=== PATIENT | male | born 1990 | race Two or more races ===

== ENCOUNTER 2018-05-01 18:19 | Inpatient (IN) | payer OTHER ==
[2018-05-01 18:21] VITALS: BMI 26.6
--- NOTE | 2018-05-01 21:50 | HP ---
COWS - Scale Resting Pulse: 1= NE 81-100 Sweatin= Chills/Flushing Restless Observation: 1= Difficult to Sit Still Pupil Size: 0= Normal to Room Light Bone or Joint Aches: 0= None Runny Nose/ Eye Tearin= Runny Nose/Eyes GI Upset > 30mins: 0= None Tremor Observation: 1= Tremor [place], Not Seen Yawning Observation: 4= Several Times/Minute Anxiety or Irritability: 2=Irritable/Anxious Goose Flesh Skin: 0=Smooth Skin COWS Score: 12 Admission [facility] - HPI Chief Complaint: ' I want to get clean" opioid withdrawal symptom Allergies/Adverse Reactions: Allergies Allergy/AdvReac Type Severity Reaction Status Date / Time No Known Allergies Allergy Verified 12/08/15 11:38 History of Present Illness: 27 yo male with with hx of nicotine, heroin (IV), cocaine (IV) dependence is here seeking detox. Utox positive for Fen, THC, LUCIE, met, amp, MOP, oxy, denies use of any other substance aside from lucie and heroin. Denies suicidal / homicidal ideation or hx of suicide attempt. Last detox [facility] over three weeks. Denies hx of seizures or blackouts. Denies any legal troubles at this time. Longest period of sobriety six month months and relapse January 2018. Exam Limitations: No Limitations - Ebola screening Have you traveled outside of the country in the last 21 days: No (N) Have you had contact with anyone from an Ebola affected area: No Have you been sick,other than usual withdrawal symptoms: No Do you have a fever: No - Review of Systems Constitutional: Loss of Appetite, Changes in sleep, Unintentional Wgt. Loss (10 lbs), Other (fatigue) EENT: reports: Nose Congestion Respiratory: reports: No Symptoms reported Cardiac: reports: No Symptoms Reported GI: reports: Poor Appetite, Poor Fluid Intake : reports: No Symptoms Reported Musculoskeletal: reports: Back Pain, Joint Pain Integumentary: reports: Pruritus Neuro: reports: No Symptoms reported Endocrine: reports: Increased Thirst Hematology: reports: No Symptoms Reported Psychiatric: reports: Orientated x3, Anxious Other Systems: Reviewed and Negative Patient History - Patient Medical History Hx Anemia: No Hx Asthma: No Hx Chronic Obstructive Pulmonary Disease (COPD): No Hx Cancer: No Hx Cardiac Disorders: No Hx Congestive Heart Failure: No Hx Hypertension: No Hx Hypercholesterolemia: No Hx Pacemaker: No HX Cerebrovascular Accident: No Hx Seizures: Yes (drug related once-last episode was in 08/2015) Hx Dementia: No Hx Diabetes: No Hx Gastrointestinal Disorders: No Hx Genitourinary Disorders: No Hx Sexually Transmitted Disorders: No Hx Renal Disease (ESRD): No Hx Thyroid Disease: No Hx Human Immunodeficiency Virus (HIV): No (NEGATIVE HX) Hx Hepatitis C: No Hx Depression: Yes (AND ANXIETY/PANIC ATTACK-ON MEDS) Hx Suicide Attempt: No Hx Bipolar Disorder: Yes Hx Schizophrenia: No - Patient Surgical History Past Surgical History: Yes Hx Neurologic Surgery: No Hx Cataract Extraction: No Hx Cardiac Surgery: No Hx Lung Surgery: No Hx Breast Surgery: No Hx Breast Biopsy: No Hx Abdominal Surgery: No Hx Appendectomy: No Hx Cholecystectomy: No Hx Genitourinary Surgery: No Hx Section: No Hx Orthopedic Surgery: No Other Surgical History: bilateral inguinal hernia repair Anesthesia Reaction: No - PPD History Previous Implant?: No Documented Results: Negative w/o proof Date: 12/10/15 Results: TBD PPD to be Administered?: Yes - Smoking Cessation Smoking history: Current every day smoker Have you smoked in the past 12 months: Yes Aproximately how many cigarettes per day: 10 Hx Chewing Tobacco Use: No Initiated information on smoking cessation: Yes 'Breaking Loose' booklet given: 05/01/18 - Substance & Tx. History Hx Alcohol Use: No Hx Substance Use: Yes Substance Use Type: Cocaine, Heroin Hx Substance Use Treatment: Yes ([facility] over three weeks ago ) - Substances Abused Heroin Route: Injection Frequency: Daily Amount used: one bundle Age of first use: 21 Date of Last Use: 05/01/18 Cocaine Route: Injection Frequency: Daily Amount used: 1 gram Age of first use: 21 Date of Last Use: 05/01/18 Family Disease History - Family Disease History Family History: Denies Admission Physical Exam BHS - Vital Signs Vital Signs: Vital Signs - 24 hr 05/01/18 18:20 Temperature 97.1 F L Pulse Rate 97 H Respiratory 18 Rate Blood Pressure 130/92 - Physical General Appearance: Yes: Appropriately Dressed, Mild Distress, Irritable, Anxious HEENTM: Yes: EOMI, Hearing grossly Normal, Normal ENT Inspection, Normocephalic , Normal Voice, TIFFANIE, Pharynx Normal, Tm's normal, Rhinorrhea, Other (dry muscous membranes, cheilithis) Respiratory: Yes: Chest Non-Tender, Lungs Clear, Normal Breath Sounds, No Respiratory Distress, No Accessory Muscle Use Neck: Yes: Within Normal Limits Breast: Yes: Breast Exam Deferred Cardiology: Yes: Regular Rhythm, Regular Rate Abdominal: Yes: Normal Bowel Sounds, Non Tender, Flat, Soft Genitourinary: Yes: Within Normal Limits Back: Yes: Normal Inspection Musculoskeletal: Yes: full range of Motion, Gait Steady, Pelvis Stable, Back pain Extremities: Yes: Normal Capillary Refill, Normal Inspection, Normal Range of Motion, Non-Tender Neurological: Yes: osteologist II-XII NML intact, Fully Oriented, Alert, Motor Strength 5/5, Normal Response, Depressed Affect Integumentary: Yes: Normal Color, Warm, Diaphoresis Lymphatic: Yes: Within Normal Limits - Diagnostic (1) Cocaine dependence Current Visit: Yes Status: Acute Qualifiers: Substance use status: uncomplicated Qualified Code(s): F14.20 - Cocaine dependence, uncomplicated (2) Nicotine dependence Current Visit: Yes Status: Acute Qualifiers: Nicotine product type: cigarettes Substance use status: uncomplicated Qualified Code(s): F17.210 - Nicotine dependence, cigarettes, uncomplicated (3) Opioid dependence with withdrawal Current Visit: Yes Status: Acute (4) IVDU (intravenous drug user) Current Visit: Yes Status: Acute Cleared for Admission [facility] - Detox or Rehab [facility] Level of Care: Medically Managed Detox Regimen/Protocol: Methadone [facility] Breath Alcohol Content Breath Alcohol Content: 0 Urine Drug Screen - Results Drug Screen Negative: No Urine Drug Screen Results: THC-Marijuana, LUCIE-Cocaine, OPI-Opiates, AMP- Amphetamines, MET-Methamphetamine, OXY-Oxycodone, FEN-Fentanyl
[2018-05-01] MEDS ORDERED: diazePAM 5 MG TABLET PO PRN (21:54)
[2018-05-01] MEDS ORDERED: IBUPROFEN 400 MG TABLET (FP) PO PRN (21:54)
[2018-05-01] MEDS ORDERED: MAG HYDROX/AL HYDROX/SIMETH 30 ML UNIT-DOSE CUP PO PRN (21:54)
[2018-05-01] MEDS ORDERED: MAGNESIUM HYDROX 2400MG/30ML ORAL SUSPENSION 30 ML CUP PO PRN (21:54)
[2018-05-01] MEDS ORDERED: NICOTINE POLACRILEX 2 MG GUM BC PRN (21:54)
[2018-05-01] MEDS ORDERED: P-EPHED 60MG/TRIPROLIDI 2.5MG TABLET PO PRN (21:54)
[2018-05-01] MEDS ORDERED: guaiFENesin/D-METHORPHAN HB 10 ML UNIT-DOSE CUPS PO PRN (21:54)
[2018-05-01] MEDS ORDERED: LOPERAMIDE HCL 2 MG CAPSULE PO PRN (21:54)
[2018-05-01] MEDS ORDERED: MAGNESIUM CITRATE 300 ML BOTTLE PO PRN (21:54)
[2018-05-01] MEDS ORDERED: ACETAMINOPHEN 325 MG TABLET (FP) PO PRN (21:54)
[2018-05-01] MEDS ORDERED: MENTHOL/PHENOL 1 EACH UD MM PRN (21:54)
[2018-05-01] MEDS ORDERED: METHADONE HCL 10 MG TABLET (FOR DETOX USE ONLY) PO ONE ×2 (21:54→23:00)
[2018-05-01] MEDS ORDERED: MELATONIN 5 MG TABLETS PO PRN (22:00)
[2018-05-01] MEDS: THIAMINE HCL 100 MG TABLET (FP) PO SCH (23:55)
[2018-05-02] MEDS ORDERED: METHADONE HCL 10 MG TABLET (FOR DETOX USE ONLY) PO ONE (10:00)
--- NOTE | 2018-05-02 10:19 | PN ---
BHS COWS - Scale Resting Pulse: 0= [place] 80 or Below Sweatin= Beads of Sweat on Face Restless Observation: 0= Sits Still Pupil Size: 0= Normal to Room Light Bone or Joint Aches: 0= None Runny Nose/ Eye Tearin= None GI Upset > 30mins: 0= None Tremor Observation of Outstretched Hands: 0= None Yawning Observation: 1= 1-2x During Session Anxiety or Irritability: 2=Irritable/Anxious Goose Flesh Skin: 0=Smooth Skin COWS Score: 6 BHS Progress Note (SOAP) Subjective: PATIENT SWEATY, IRRITABLE, SLEEPY AND NOT COMMUNICATING WITH PROVIDER. Objective: 05/02/18 10:18 Vital Signs Temperature 98.6 F 05/02/18 09:29 Pulse Rate 71 05/02/18 09:29 Respiratory Rate 20 05/02/18 09:29 Blood Pressure 122/74 05/02/18 09:29 O2 Sat by Pulse Oximetry (%) PE: SKIN WARM AND BEADS OF SWEAT NOTED OF FOREHEAD ANXIOUS/IRRITABLE EXT FULL ROM, NO EDEMA AMB AD SARAH Assessment: 05/02/18 10:19 WITHDRAWAL SX Plan: CONTINUE DETOX [facility] ORAL FLUIDS CONTINUE TO MONITOR CLINICALLY
[2018-05-02 10:50] LABS: HEMOGLOBIN 13.4 GM/dL (11.7-16.9); RBC 4.48 M/mm3 (4.00-5.60); WHITE BLOOD COUNT 3.9 K/mm3 (4.0-10.0)
[2018-05-02 10:53] LABS: MCH 29.9 pg (25.7-33.7); MCHC 32.6 g/dl (32.0-35.9); MEAN CELL VOLUME 91.6 fl (80-96); PLATELET COUNT 215 K/MM3 (134-434); RDW 14.2 % (11.9-15.9)
[2018-05-02 10:58] LABS: ALBUMIN 3.5 g/dl (3.4-5.0); ALK PHOS 99 U/L (45-117); ANION GAP 10 MMOL/L (8-16); BILIRUBIN,TOTAL 0.3 mg/dL (0.2-1); BLOOD UREA NITROGEN 18 mg/dL (7-18); CALCIUM 8.4 mg/dL (8.5-10.1); CHLORIDE 106 mmol/L (98-107); CO2 24 mmol/L (21-32); CREATININE 0.9 mg/dL (0.55-1.3); GLUCOSE,RANDOM 82 mg/dL (74-106); POTASSIUM 3.9 mmol/L (3.5-5.1); SGOT/AST 14 U/L (15-37); SGPT/ALT 16 U/L (13-61); SODIUM 139 mmol/L (136-145)
--- NOTE | 2018-05-02 11:36 | EKG ---
Test Reason : Blood Pressure : / mmHG Vent. Rate : 088 BPM Atrial Rate : 088 BPM P-R Int : 162 ms QRS Dur : 080 ms QT Int : 342 ms P-R-T Axes : 073 085 054 degrees QTc Int : 413 ms NORMAL SINUS RHYTHM NORMAL ECG NO PREVIOUS ECGS AVAILABLE Confirmed by JOSE L TURNER MD ([id number]) on 05/02/2018 11:35:56 AM Referred By: Confirmed By:JOSE L TURNER MD
[2018-05-02] MEDS: PRENATAL VITAMINS W/ FOLIC ACID TABLET (FP) PO SCH (11:56)
[2018-05-02] MEDS: NICOTINE 14 MG/24 HOURS TOPICAL PATCH TD SCH (11:58)
--- NOTE | 2018-05-02 14:08 | CONSULT ---
[facility] Psychiatric Consult - Data Date of interview: 05/02/18 Admission source: [facility] Identifying data: Patient is approached at bedside for the psychiatric interview. Mr Alvarez declines. " I don't have psychiatric problems ". Nursing staff is made aware.
[2018-05-02] MEDS: THIAMINE HCL 100 MG TABLET (FP) PO SCH (22:34)
[2018-05-03] MEDS ORDERED: METHADONE HCL 5 MG TABLET (FOR DETOX USE ONLY) PO ONE (10:00)
[2018-05-03] MEDS: PRENATAL VITAMINS W/ FOLIC ACID TABLET (FP) PO SCH (10:31)
[2018-05-03] MEDS: NICOTINE 14 MG/24 HOURS TOPICAL PATCH TD SCH (10:31)
--- NOTE | 2018-05-03 12:09 | PN ---
[facility]HS COWS - Scale Resting Pulse: 1= [place] 81-100 Sweatin= Chills/Flushing Restless Observation: 1= Difficult to Sit Still Pupil Size: 0= Normal to Room Light Bone or Joint Aches: 1= Mild Discomfort Runny Nose/ Eye Tearin= Runny Nose/Eyes GI Upset > 30mins: 0= None Tremor Observation of Outstretched Hands: 1= Tremor [place], Not Seen Yawning Observation: 2= >3x During Session Anxiety or Irritability: 2=Irritable/Anxious Goose Flesh Skin: 0=Smooth Skin COWS Score: 11 BHS Progress Note (SOAP) Subjective: c/o of fatigue, irritable, body Objective: 05/03/18 12:08 Vital Signs Temperature 98.6 F 05/03/18 09:13 Pulse Rate 82 05/03/18 09:13 Respiratory Rate 18 05/03/18 09:13 Blood Pressure 116/74 05/03/18 09:13 O2 Sat by Pulse Oximetry (%) Laboratory Last Values WBC 3.9 K/mm3 (4.0-10.0) L 05/02/18 07:30 RBC 4.48 M/mm3 (4.00-5.60) 05/02/18 07:30 Hgb 13.4 GM/dL (11.7-16.9) 05/02/18 07:30 Hct 41.0 % (35.4-49) 05/02/18 07:30 MCV 91.6 fl (80-96) 05/02/18 07:30 MCH 29.9 pg (25.7-33.7) 05/02/18 07:30 MCHC 32.6 g/dl (32.0-35.9) 05/02/18 07:30 RDW 14.2 % (11.9-15.9) 05/02/18 07:30 Plt Count 215 K/MM3 (134-434) D 05/02/18 07:30 MPV 10.0 fl (7.5-11.1) 05/02/18 07:30 Sodium 139 mmol/L (136-145) 05/02/18 07:30 Potassium 3.9 mmol/L (3.5-5.1) 05/02/18 07:30 Chloride 106 mmol/L (98-107) 05/02/18 07:30 Carbon Dioxide 24 mmol/L (21-32) 05/02/18 07:30 Anion Gap 10 MMOL/L (8-16) 05/02/18 07:30 BUN 18 mg/dL (7-18) 05/02/18 07:30 Creatinine 0.9 mg/dL (0.55-1.3) 11 07:30 Creat Clearance w eGFR > 60 (>60) 05/02/18 07:30 Random Glucose 82 mg/dL (74-106) 05/02/18 07:30 Calcium 8.4 mg/dL (8.5-10.1) L 05/02/18 07:30 Total Bilirubin 0.3 mg/dL (0.2-1) 05/02/18 07:30 AST 14 U/L (15-37) L 05/02/18 07:30 ALT 16 U/L (13-61) 05/02/18 07:30 Alkaline Phosphatase 99 U/L (45-117) 05/02/18 07:30 Total Protein 7.0 g/dl (6.4-8.2) 05/02/18 07:30 Albumin 3.5 g/dl (3.4-5.0) 05/02/18 07:30 RPR Titer Nonreactive (NONREACTIVE) 05/02/18 07:30 Assessment: 05/03/18 12:11 withdrawal sx Plan: increase PO fluids continue to monitor continue detox
[2018-05-03] MEDS: THIAMINE HCL 100 MG TABLET (FP) PO SCH (22:38)
[2018-05-04 06:08] VITALS: BP 100/63; PULSE 76; TEMP 98.9
[2018-05-04] MEDS ORDERED: METHADONE HCL 5 MG TABLET (FOR DETOX USE ONLY) PO ONE (10:00)
--- NOTE | 2018-05-04 12:19 | DS ---
[facility] Detox Discharge Summary Admission Date: 05/01/18 Discharge Date: 05/04/18 - History Present History: Cocaine Dependence, Opioid Dependence Additional Comments: Patient decided to leave AMA despite encouragement from staff to complete detox. Patient instructed to call 911 right away if experiencing withdrawal symptoms and to see his PCP within 3 days. Pertinent Past History: Seizure disorder r/t illicit drugs Cocaine dependence Opioid dependence Nicotine dependence - Physical Exam Results Vital Signs: Vital Signs Temperature 98.9 F 05/04/18 06:07 Pulse Rate 76 05/04/18 06:07 Respiratory Rate 18 05/04/18 06:07 Blood Pressure 100/63 05/04/18 06:07 O2 Sat by Pulse Oximetry (%) Pertinent Admission Physical Exam Findings: Withdrawal symptoms Laboratory Tests 05/02/18 05/02/18 05/02/18 07:30 07:30 07:30 WBC 3.9 L RBC 4.48 Hgb 13.4 Hct 41.0 MCV 91.6 MCH 29.9 MCHC 32.6 RDW 14.2 Plt Count 215 D MPV 10.0 Sodium 139 Potassium 3.9 Chloride 106 Carbon Dioxide 24 Anion Gap 10 BUN 18 Creatinine 0.9 Creat Clearance w eGFR > 60 Random Glucose 82 Calcium 8.4 L Total Bilirubin 0.3 AST 14 L ALT 16 Alkaline Phosphatase 99 Total Protein 7.0 Albumin 3.5 RPR Titer Nonreactive Labs reviewed - Medication Discharge Medications: Ambulatory Orders NK [No Known Home Medication] 05/01/18 - Diagnosis (1) Depression Status: Chronic (2) Anxiety Status: Chronic (3) Nicotine dependence Status: Chronic Qualifiers: Nicotine product type: cigarettes Substance use status: uncomplicated Qualified Code(s): F17.210 - Nicotine dependence, cigarettes, uncomplicated (4) Opioid dependence with withdrawal Status: Acute (5) Cocaine dependence Status: Chronic Qualifiers: Substance use status: uncomplicated Qualified Code(s): F14.20 - Cocaine dependence, uncomplicated (6) Bipolar disorder Status: Chronic (7) History of seizure Status: Chronic - AMA Did Patient Leave Against Medical Advice: Yes (Call 911 if withdrawal symptoms or feeling sick)
[2018-05-05] MEDS ORDERED: METHADONE HCL 10 MG TABLET (FOR DETOX USE ONLY) PO ONE (10:00)
[2018-05-06] MEDS ORDERED: METHADONE HCL 5 MG TABLET (FOR DETOX USE ONLY) PO ONE (06:00)
== END 2018-05-04 09:06 | disposition left against medical advice (07) | DRG 770 ==
LOC: YASAS 18:19 → Y3N 22:33
PROC: HZ2ZZZZ Detoxification Services for Substance Abuse Treatment (ICD-10-PCS; principal; 2018-05-01)
DX: F11.23 Opioid dependence with withdrawal (principal); F14.20 Cocaine dependence, uncomplicated; F17.213 Nicotine dependence, cigarettes, with withdrawal; F31.9 Bipolar disorder, unspecified; F41.8 Other specified anxiety disorders; F41.0 Panic disorder [episodic paroxysmal anxiety]; F32.9 Major depressive disorder, single episode, unspecified; Z86.69 Personal history of other diseases of the nervous system and sense organs
CPT/HCPCS: 36415; 80053; 85027; 86593; 93005; 93010